=== PATIENT | female | born 1960 | race Caucasian/White ===

== ENCOUNTER 2018-05-31 04:35 | Emergency (ER) | payer MEDICARE ==
[~2018-05-31] VITALS: Ht 152.4 cm; Wt 62.0 kg
[2018-05-31 04:44] VITALS: BP 111/69
--- NOTE | 2018-05-31 05:00 | NUR ---
PT RESTING COMFORTABLY IN BED AT THIS TIME. PT REMAINS A&O TO SELF. BILAT BEDRAILS UP. WILL CONTINUE TO MONITOR.
--- NOTE | 2018-05-31 05:29 | NUR ---
PT REFUSED LABS AT THIS TIME. PT ON VITALS MONITORS. BILAT BEDRAILS UP.
--- NOTE | 2018-05-31 05:54 | NUR ---
PT REFUSED LABS ONCE AGAIN. PT CONTINUES TO REST IN BED AT THIS TIME. WILL COTNINUE TO MONITOR.
--- NOTE | 2018-05-31 06:20 | NUR ---
PT FOUND SLEEPING ON FLOOR. PT STATED SHE WAS TRYING TO GO TO THE BATHROOM. NO OBVIOUS INJURIES TO PT HEAD. PT BILAT EYES PERRLA. PT REMAINS A&OX1. PT PLACED BACK IN BED. ERP MADE AWARE PT FOUND ON FLOOR. WILL CONTINUE TO MONITOR PT. PT ASKING TO GO TO THE BATHROOM, PLACED PT ON BEDPAN, WITHOUT AN RESULTS. BILAT BEDRAILS UP, WILL CONTINUE TO MONITOR.
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
--- NOTE | 2018-05-31 07:32 | NUR ---
PT FOUND STANDING AT END OF BED AND UNSTEADY. PT SLURRING WORDS. PT ESCORTED BACK TO BED AND TOLERATED WELL. BED RAILS UP AND IN [facility]ERA MONITORED ROOM FOR SAFETY
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
--- NOTE | 2018-05-31 09:58 | NUR ---
DISCUSSED CONTACTING KIMBERLY WITH PT AND CONTACT INFORMATION GIVEN. PT AND BROTHER (AT BEDSIDE) VERBALIZE UNDERSTANDING.
--- NOTE | 2018-05-31 10:42 | NUR ---
PT ASKING TO GET UP TO RESTROOM. PT ASSISTED FROM THE BED AND AMBULATED TO RESTROOM WITH STEADY GAIT AND BALANCE.
--- NOTE | 2018-05-31 10:43 | NUR ---
PT CONSENTS FOR SLAG WORKER TO APPLY SPLINT PER ED MD ORDERS. SLAG WORKER AT BEDSIDE NOW.
--- NOTE | 2018-05-31 11:22 | NUR ---
PT REFUSING TO ALLOW FOR VITAL SIGNS TO BE TAKEN.
--- NOTE | 2018-05-31 11:22 | NUR ---
Patient AND HER BROTHER WHO IS HER Caregiver given discharge instructions and they have confirmed that they understand the instructions. Patient ambulatory with steady gait. PT LEFT WITH DISCHARGE INSTRUCTIONS AND ALL PERSONAL BELONGINGS.
== END 2018-05-31 11:27 | disposition home or self-care (01) ==
LOC: ED 10:18
DX: S62.337A Displaced fracture of neck of fifth metacarpal bone, left hand, initial encounter for closed fracture (principal); X58.XXXA Exposure to other specified factors, initial encounter; F10.220 Alcohol dependence with intoxication, uncomplicated; Y93.89 Activity, other specified; Y92.89 Other specified places as the place of occurrence of the external cause; Y99.8 Other external cause status
CPT/HCPCS: 29125; 99283

== ENCOUNTER 2018-06-03 04:42 | Emergency (ER) | payer MEDICARE ==
[~2018-06-03] VITALS: Ht 152.4 cm; Wt 56.7 kg
[2018-06-03 04:44] VITALS: BP 122/84
--- NOTE | 2018-06-03 05:43 | NUR ---
Patient/Caregiver given discharge instructions and they have confirmed that they understand the instructions. Patient ambulatory with steady gait.
== END 2018-06-03 05:45 | disposition home or self-care (01) ==
LOC: ED 04:53
DX: S62.327A Displaced fracture of shaft of fifth metacarpal bone, left hand, initial encounter for closed fracture (principal); F10.129 Alcohol abuse with intoxication, unspecified; X58.XXXA Exposure to other specified factors, initial encounter; Y93.89 Activity, other specified; Y92.89 Other specified places as the place of occurrence of the external cause; Y99.8 Other external cause status
CPT/HCPCS: 99283